=== PATIENT | male | born 1975 | race Caucasian/White ===

== ENCOUNTER 2022-03-28 00:24 | Emergency (ER) | payer SELFPAY ==
[~2022-03-28] VITALS: Ht 170.2 cm; Wt 74.8 kg
[2022-03-28 01:26] LABS: HEMATOCRIT 40.9 % (36.7-47.1); MEAN CORPUSCULAR HEMOGLOBIN 27.6 uug (23.8-33.4); MEAN CORPUSCULAR VOLUME 83.1 fL (73.0-96.2); PLATELET COUNT (AUTO) 344 K/uL (152-348)
[2022-03-28 01:47] LABS: CARBON DIOXIDE 24 mmol/L (21-32); CHLORIDE 103 mmol/L (98-107); GLUCOSE 105 mg/dL (74-106); POTASSIUM 3.8 mmol/L (3.5-5.1); UREA NITROGEN, BLOOD 13 mg/dL (7-18)
--- NOTE | 2022-03-28 02:00 | NUR ---
Patient sleeping on gurny in hallway with no distress noted. No beds available in the ER at this time.
[2022-03-28 02:07] LABS: ALANINE AMINOTRANSFERASE 30 U/L (16-63); ALKALINE PHOSPHATASE 75 U/L (50-136); ASPARTATE AMINOTRANSFERASE 13 U/L (15-37); BILIRUBIN,DIRECT < 0.1 mg/dL (0.0-0.2); BILIRUBIN,TOTAL 0.2 mg/dL (0.2-1.0); TOTAL PROTEIN, SERUM 7.7 g/dL (6.4-8.2)
[2022-03-28] MEDS ORDERED: ASPIRIN 81 MG TAB.CHEW PO ONE (02:15)
[2022-03-28] MEDS ORDERED: NITROGLYCERIN 0.4 MG/TAB BOTTLE SL ONE ×2 (02:15→02:38)
[2022-03-28] MEDS ORDERED: ASPIRIN 81 MG TAB.CHEW ONE (02:37)
[2022-03-28 02:54] VITALS: BP 126/72
--- NOTE | 2022-03-28 03:45 | NUR ---
Patient was called for re check of blood pressure but patient was not present in the waiting room.
--- NOTE | 2022-03-28 04:22 | NUR ---
USED [facility] ADJUNCT FACULTY INSTRUCTOR, SPOKE TO SAQIB TRANSULATOR ID# [id number]. PATIENT STATES THROUGH ADJUNCT FACULTY INSTRUCTOR THAT HE HAS BEEN HAVING INTERMITTEN CP DESCRIBING PAIN [place] PAIN NONRADIATING WITH TAKING A DEEP BREATH MAKING PAIN WORSE.
--- NOTE | 2022-03-28 06:00 | NUR ---
call to [facility] portable boiler for admission.
--- NOTE | 2022-03-28 06:18 | NUR ---
bean conde np called back for admission.
--- NOTE | 2022-03-28 06:20 | NUR ---
Patient placed in room 1A.
--- NOTE | 2022-03-28 07:15 | NUR ---
Received. Pt. [id number]. vitals stable no c/o pain.
[2022-03-28] MEDS ORDERED: ACETAMINOPHEN 325 MG TABLET PO PRN (07:45)
[2022-03-28] MEDS ORDERED: ONDANSETRON 4 MG/2 ML VIAL IV PRN (07:45)
[2022-03-28] MEDS ORDERED: MAGNESIUM HYDROXIDE 30 ML LIQUID UDC PO PRN (07:45)
[2022-03-28] MEDS ORDERED: REMEDY ESSENTIAL ZINC PASTE 113 GM TP PRN (07:45)
--- NOTE | 2022-03-28 08:31 | NUR ---
Patient seen by reinforcing steel worker Dr. Beach.
[2022-03-28] MEDS ORDERED: ENOXAPARIN SODIUM 40 MG/0.4 ML DISP.SYRIN SQ SCH (09:00)
[2022-03-28] MEDS ORDERED: ASPIRIN 81 MG TAB.CHEW PO SCH (09:00)
[2022-03-28] MEDS ORDERED: METOPROLOL TARTRATE 50 MG TABLET PO SCH (09:00)
--- NOTE | 2022-03-28 10:11 | NUR ---
Patient restless and as stated by him anxious to go outside and smoke. Pt. educated on telemetry monitoring need. Patient stated "I'm not willing to stay any longer I need to go home there's nothing wrong with me" Attending called to be notified. Technical Inspector notifed as well
[2022-03-28] MEDS ORDERED: ATORVASTATIN 20 MG TABLET PO SCH (21:00)
== END 2022-03-28 10:14 | disposition left against medical advice (07) ==
LOC: ER 00:28
DX: R07.9 Chest pain, unspecified (principal); F12.90 Cannabis use, unspecified, uncomplicated; M51.14 Intervertebral disc disorders with radiculopathy, thoracic region; F17.210 Nicotine dependence, cigarettes, uncomplicated; Z53.29 Procedure and treatment not carried out because of patient's decision for other reasons; Z20.822 Contact with and (suspected) exposure to COVID-19
CPT/HCPCS: 36415; 71045; 84484; 85025; 93005; A4663